=== PATIENT | female | born 1960 | race Native Hawaiian/Other Pacific Islander ===

== ENCOUNTER 2021-05-01 14:33 | Outpatient (CLI) | payer OTHER | END 2021-05-01 19:14 | disposition home or self-care (01) | LOC: RAD 14:33 | PROVIDERS: ATTEND Physician Assistant | DX: M25.552 Pain in left hip (principal) ==

== ENCOUNTER 2021-05-16 08:49 | Outpatient (CLI) | payer OTHER | END 2021-05-16 18:57 | disposition home or self-care (01) | LOC: CT 08:49 | PROVIDERS: ATTEND Physician Assistant | DX: M87.859 Other osteonecrosis, unspecified femur (principal) ==

== ENCOUNTER 2021-10-11 08:46 | Outpatient (CLI) | payer OTHER ==
[~2021-10-11] VITALS: Ht 30.5 cm; Wt 0.5 kg
[2021-10-11 09:28] LABS: PARTIAL THROMBOPLASTIN TIME 25.2 SECONDS (24.5-33.6)
== END 2021-10-11 19:08 | disposition home or self-care (01) ==
LOC: RAD 08:46
PROVIDERS: ATTEND Orthopaedic Surgery
DX: M16.12 Unilateral primary osteoarthritis, left hip (principal)
CPT/HCPCS: 36415; 85610; 85730; J1020

== ENCOUNTER 2021-12-06 09:44 | Outpatient (CLI) | payer OTHER ==
[~2021-12-06] VITALS: Ht 30.5 cm; Wt 0.5 kg
[2021-12-06 10:40] LABS: PARTIAL THROMBOPLASTIN TIME 26.4 SECONDS (24.5-33.6)
== END 2021-12-06 19:11 | disposition home or self-care (01) ==
LOC: RAD 09:44
PROVIDERS: ATTEND Orthopaedic Surgery
DX: M16.12 Unilateral primary osteoarthritis, left hip (principal); M54.2 Cervicalgia; M25.562 Pain in left knee
CPT/HCPCS: 20610; 36415; 85610; 85730; J1020